=== PATIENT | male | born 1950 | race Caucasian/White ===

== ENCOUNTER 2023-07-29 19:05 | Emergency (ER) | payer OTHER ==
[~2023-07-29] VITALS: Ht 182.9 cm; Wt 113.4 kg
[2023-07-29 19:10] VITALS: BP 104/53; PULSE 105; RESP 16; TEMP 97.3; O2SAT 97
[2023-07-29 20:14] LABS: APPEARANCE,URINE CLEAR (CLEAR); BILIRUBIN,URINE 2+ (NEGATIVE); BLOOD, URINE NEGATIVE (NEGATIVE); COLOR,URINE YELLOW (YELLOW); LEUKOCYTE ESTERASE ,URINE NEGATIVE (NEGATIVE); NITRITE, URINE NEGATIVE (NEGATIVE); PH,URINE 5.5 (5.0-9.0); PROTEIN,URINE TRACE (NEGATIVE); UGLUCOSE 2+ (NEGATIVE); UROBILINOGEN,URINE 0.2 EU/dL (0.2 - 1)
[2023-07-29 20:24] LABS: ICTOTEST NEGATIVE (NEGATIVE)
[2023-07-29 20:25] LABS: BACTERIA,URINE FEW /HPF (None Seen); MUCUS,URINE 1+ /LPF (None Seen); RBC,URINE 0-5 /HPF (0-5); SQUAMOUS EPITHELIAL CELL,UR 50-80 /LPF (0-3 (FEW)); TRICHOMONAS,URINE None Seen /HPF (None Seen); WBC,URINE 0-5 /HPF (0-5); YEAST,URINE None Seen /HPF (None Seen)
[2023-07-29 20:27] LABS: BASOPHILS # (AUTO) 0.1 K/uL (0.00-0.22); BASOPHILS % (AUTO) 1.7 % (0.0-2.0); EOSINOPHILS % (AUTO) 0.7 % (0.0-4.0); HEMATOCRIT 23.3 % (36-52); HEMOGLOBIN 8.1 g/dL (12.0-18.0); LYMPHOCYTES # (AUTO) 0.8 K/uL (2.0-11.5); MEAN CORPUSCULAR HEMOGLOBIN 31 pg (27-31); MEAN CORPUSCULAR HGB CONC 35 g/dL (33-37); MEAN CORPUSCULAR VOLUME 89.1 fL (80-94); MONOCYTES % (AUTO) 16.9 % (1.7-9.3); NEUTROPHILS % (AUTO) 66.7 % (42.2-75.2); PLATELET COUNT (AUTO) 247 K/uL (140-450); RED BLOOD CELL COUNT(AUTO) 2.61 MIL/uL (4.20-6.10); RED CELL DISTRIBUTION WIDTH 19.8 % (11.6-13.7); WHITE BLOOD COUNT (AUTO) 5.9 K/uL (4.8-10.8)
[2023-07-29 20:37] LABS: ANION GAP 14.6 (8-16); CALCIUM 8.3 mg/dL (8.5-10.1); CHLORIDE 106 mmol/L (98-107); CREATININE 1.8 mg/dL (0.6-1.3); GLUCOSE 101 mg/dL (74-106); POTASSIUM 5.6 mmol/L (3.5-5.1); SODIUM SERUM 139 mmol/L (136-145); UREA NITROGEN, BLOOD 35 mg/dL (7-18)
[2023-07-29 20:41] LABS: ANISOCYTOSIS 2+; BURR CELLS 1+; HYPOCHROMASIA 1+; OVALOCYTES 1+; POIKILOCYTOSIS 1+; STOMATOCYTES 1+
[2023-07-29 21:07] VITALS: RESP 14
[2023-07-29] MEDS ORDERED: SODIUM ZIRCONIUM CYCLOSILICATE 10 GM POWD.PACK PO ONE (21:45)
[2023-07-29 22:25] VITALS: BP 101/67; PULSE 98; O2SAT 100
== END 2023-07-29 22:42 ==
LOC: MED 19:05
DX: R33.9 Retention of urine, unspecified (principal); J44.9 Chronic obstructive pulmonary disease, unspecified; E11.9 Type 2 diabetes mellitus without complications; I10 Essential (primary) hypertension; Z86.73 Personal history of transient ischemic attack (TIA), and cerebral infarction without residual deficits
CPT/HCPCS: 36415; 51702; 80048; 81001; 85025; 93005; 99284

== ENCOUNTER 2023-10-08 19:19 | Inpatient (IN) | payer OTHER ==
[~2023-10-08] VITALS: Ht 180.3 cm; Wt 96.7 kg
[2023-10-08 19:32] VITALS: BP 119/70; PULSE 103; RESP 20; TEMP 97.5; O2SAT 98
[2023-10-08 22:23] LABS: BLOOD GAS PCO2 26.2 mmHg (35-45); BLOOD GAS PH 7.477 (7.35-7.45)
[2023-10-08 22:24] LABS: BLOOD GAS BASE EXCESS -3.5 mmol/L (-2.0-2.0); BLOOD GAS HCO3 18.9 mmol/L (22-26); BLOOD GAS O2 SAT% 92.9 % (92.0-98.5); BLOOD GAS PO2 66.5 mmHg (75-100)
[2023-10-08] MEDS: NACL 0.9% 1,000 ML IV ONE (22:50)
[2023-10-08 22:58] LABS: EOSINOPHILS % (AUTO) 1.2 % (0.0-4.0); HEMATOCRIT 33.9 % (36-52); HEMOGLOBIN 11.5 g/dL (12.0-18.0); LYMPHOCYTES # (AUTO) 0.5 K/uL (2.0-11.5); LYMPHOCYTES % (AUTO) 91.3 % (20.5-51.1); MEAN CORPUSCULAR HEMOGLOBIN 34 pg (27-31); MEAN CORPUSCULAR HGB CONC 34 g/dL (33-37); MEAN CORPUSCULAR VOLUME 100.7 fL (80-94); MONOCYTES % (AUTO) 2.2 % (1.7-9.3); NEUTROPHILS % (AUTO) 5.3 % (42.2-75.2); PLATELET COUNT (AUTO) 55 K/uL (140-450); RED BLOOD CELL COUNT(AUTO) 3.37 MIL/uL (4.20-6.10)
[2023-10-08 23:00] LABS: WHITE BLOOD COUNT (AUTO) 0.5 K/uL (4.8-10.8)
[2023-10-08 23:04] LABS: ANION GAP 17.9 (8-16); CALCIUM 9.5 mg/dL (8.5-10.1); CARBON DIOXIDE 21.7 mmol/L (21-32); CHLORIDE 104 mmol/L (98-107); CREATININE 1.4 mg/dL (0.6-1.3); GLUCOSE 299 mg/dL (74-106); POTASSIUM 4.6 mmol/L (3.5-5.1); SODIUM SERUM 139 mmol/L (136-145); UREA NITROGEN, BLOOD 25 mg/dL (7-18)
[2023-10-08 23:11] LABS: ALANINE AMINOTRANSFERASE 63 U/L (12-78); ALBUMIN 3.4 g/dL (3.4-5.0); ALKALINE PHOSPHATASE 93 U/L (50-136); ASPARTATE AMINOTRANSFERASE 33 U/L (15-37); BILIRUBIN,DIRECT 0.2 mg/dL (0.0-0.3); TOTAL BILIRUBIN 0.6 mg/dL (0.0-1.0)
[2023-10-08 23:15] LABS: LACTIC ACID 3.2 mmol/L (0.4-2.0)
[2023-10-08 23:32] LABS: APPEARANCE,URINE CLEAR (CLEAR); BILIRUBIN,URINE NEGATIVE (NEGATIVE); BLOOD, URINE 2+ (NEGATIVE); COLOR,URINE YELLOW (YELLOW); LEUKOCYTE ESTERASE ,URINE NEGATIVE (NEGATIVE); NITRITE, URINE NEGATIVE (NEGATIVE); PROTEIN,URINE 1+ (NEGATIVE); UGLUCOSE 2+ (NEGATIVE); UROBILINOGEN,URINE 0.2 EU/dL (0.2 - 1)
[2023-10-08 23:38] LABS: BACTERIA,URINE >30 (MANY) /HPF (None Seen); MUCUS,URINE 1+ /LPF (None Seen); SQUAMOUS EPITHELIAL CELL,UR 0-3 (FEW) /LPF (0-3 (FEW))
[2023-10-09] VITALS (11 sets, daily range): BP systolic 115–142; BP diastolic 58–67; PULSE 83–108; RESP 16–21; TEMP 97.5–98.2; O2SAT 97–100
[2023-10-09 00:14] LABS: INR 1.02 (0.8-1.2); PARTIAL THROMBOPLASTIN TIME 32.5 secs (22-35.6); PROTHROMBIN TIME 10.7 secs (10.8-13.4)
[2023-10-09] MEDS ORDERED: ONDANSETRON 4 MG/2 ML VIAL IVP PRN (00:50)
[2023-10-09] MEDS: NACL 0.9% 1,000 ML IV SCH (00:50)
[2023-10-09] MEDS ORDERED: ALBUTEROL 0.083% 2.5 MG/3 ML NEBU INH PRN (00:50)
[2023-10-09] MEDS ORDERED: HYDROcodone/APAP 5/325 MG 1 TAB TAB PO PRN (00:50)
[2023-10-09] MEDS ORDERED: ACETAMINOPHEN 325 MG TAB PO PRN (00:50)
[2023-10-09] MEDS ORDERED: LORazepam 2 MG/ML VIAL IVP PRN (00:50)
[2023-10-09] MEDS ORDERED: PIPERACILLIN/TAZOBACTAM 3.375 GM VIAL IV ONE (00:51)
[2023-10-09] MEDS ORDERED: DEXTROSE 50% 50 ML SYR IVP PRN (00:55)
[2023-10-09] MEDS: PIPERACILLIN/TAZOBACTAM 3.375 GM in DEXTROSE 5% 50 ML IV ONE (01:00)
[2023-10-09 02:09] LABS: FLU A ANTIGEN negative (NEGATIVE); FLU B ANTIGEN NEGATIVE (NEGATIVE)
[2023-10-09] MEDS ORDERED: PRO5 PO (02:22)
[2023-10-09] MEDS ORDERED: POLY17PD65 PO (02:22)
[2023-10-09] MEDS ORDERED: PUL.5N NEB (02:22)
[2023-10-09] MEDS ORDERED: ROSU20TA1 PO (02:22)
[2023-10-09] MEDS ORDERED: ASPI-1749 PO (02:22)
[2023-10-09] MEDS ORDERED: ALBU3SOL83 IH (02:22)
[2023-10-09] MEDS ORDERED: FAMO-90 PO (02:22)
[2023-10-09] MEDS ORDERED: ISAV186C2 PO (02:22)
[2023-10-09] MEDS ORDERED: XALOS OP (02:22)
[2023-10-09] MEDS ORDERED: EMPA10TA PO (02:22)
[2023-10-09] MEDS ORDERED: ACYC400T14 PO (02:22)
[2023-10-09] MEDS ORDERED: APIX2.5 PO (02:22)
[2023-10-09] MEDS ORDERED: TAMS0.4C96 PO (02:25)
[2023-10-09] MEDS ORDERED: ZINC100T8 PO (02:25)
[2023-10-09] MEDS ORDERED: GILT40TA PO (02:25)
[2023-10-09] MEDS ORDERED: VIT1TABL36 PO (02:25)
[2023-10-09] MEDS ORDERED: NACL 0.9% 500 ML IV SCH (08:20)
[2023-10-09] MEDS: BLOOD GLUCOSE MONITORING 1 DEV DEV FS SCH (08:23)
[2023-10-09] MEDS: PIPERACILLIN/TAZOBACTAM 3.375 GM in DEXTROSE 5% 50 ML IV SCH ×2 (08:54→16:14)
[2023-10-09] MEDS: INSULIN LISPRO SLIDING SCALE 100 UNITS/ML VIAL SUBQ PRN (09:16)
[2023-10-09] MEDS ORDERED: VANCOMYCIN PER PHARMACY MC PRN ×2 (11:45→18:40)
[2023-10-09] MEDS: FILGRASTIM-TBO 300 MCG/0.5 ML SYRINGE SUBQ SCH (12:05)
[2023-10-09] MEDS: VANCOMYCIN 1.25GM PREMIX 250 ML IV SCH (13:20)
[2023-10-09] MEDS: ALBUTEROL SULFATE/IPRATROPIU 3 ML SOL IH SCH (15:52)
[2023-10-09] MEDS: CEFEPIME 1,000 MG in DEXTROSE 5% 50 ML IV SCH (20:20)
[2023-10-10] VITALS (11 sets, daily range): BP systolic 118–121; BP diastolic 60–64; PULSE 83–96; RESP 16–20; TEMP 96.9–97.8; O2SAT 96–100
[2023-10-10 06:47] LABS: EOSINOPHILS % (AUTO) 0.3 % (0.0-4.0); HEMATOCRIT 20.5 % (36-52); LYMPHOCYTES # (AUTO) 0.5 K/uL (2.0-11.5); LYMPHOCYTES % (AUTO) 95.7 % (20.5-51.1); MEAN CORPUSCULAR HEMOGLOBIN 34 pg (27-31); MEAN CORPUSCULAR HGB CONC 34 g/dL (33-37); MEAN CORPUSCULAR VOLUME 100.7 fL (80-94); MONOCYTES % (AUTO) 1.6 % (1.7-9.3); NEUTROPHILS % (AUTO) 2.4 % (42.2-75.2); PLATELET COUNT (AUTO) 37 K/uL (140-450); RED BLOOD CELL COUNT(AUTO) 2.03 MIL/uL (4.20-6.10); RED CELL DISTRIBUTION WIDTH 24.8 % (11.6-13.7)
[2023-10-10 06:55] LABS: WHITE BLOOD COUNT (AUTO) 0.5 K/uL (4.8-10.8)
[2023-10-10 07:25] LABS: CALCIUM 8.8 mg/dL (8.5-10.1); CHLORIDE 106 mmol/L (98-107); CREATININE 1.1 mg/dL (0.6-1.3); GLUCOSE 132 mg/dL (74-106); SODIUM SERUM 139 mmol/L (136-145); UREA NITROGEN, BLOOD 30 mg/dL (7-18)
[2023-10-10 08:25] LABS: MAGNESIUM 1.9 mg/dL (1.8-2.4); PHOSPHORUS 3.5 mg/dL (2.5-4.9)
[2023-10-10] MEDS: VANCOMYCIN 1.25GM PREMIX 250 ML IV SCH (10:10)
[2023-10-10] MEDS ORDERED: GENTAMICIN PER PHARMACY MC PRN (21:15)
[2023-10-10] MEDS ORDERED: GENTAMICIN 400 MG in DEXTROSE 5% 100 ML IV SCH (22:00)
[2023-10-11] VITALS (11 sets, daily range): BP systolic 102–127; BP diastolic 57–69; PULSE 87–95; RESP 16–18; TEMP 96.8–97.2; O2SAT 95–100
[2023-10-11] MEDS ORDERED: GENTAMICIN 400 MG in DEXTROSE 5% 100 ML IV SCH (01:35)
[2023-10-11] MEDS ORDERED: GENTAMICIN 80 MG/2 ML VIAL ONE (01:56)
[2023-10-11] MEDS: GENTAMICIN 400 MG in DEXTROSE 5% 100 ML IV ONE (02:23)
[2023-10-11 10:09] LABS: HEMATOCRIT 21.8 % (36-52); HEMOGLOBIN 7.5 g/dL (12.0-18.0); MEAN CORPUSCULAR HEMOGLOBIN 34 pg (27-31); MEAN CORPUSCULAR HGB CONC 34 g/dL (33-37); MEAN CORPUSCULAR VOLUME 99.4 fL (80-94); PLATELET COUNT (AUTO) 44 K/uL (140-450); RED CELL DISTRIBUTION WIDTH 24.6 % (11.6-13.7)
[2023-10-11 10:19] LABS: WHITE BLOOD COUNT (AUTO) 0.5 K/uL (4.8-10.8)
[2023-10-11 10:27] LABS: LACTIC ACID 2.1 mmol/L (0.4-2.0)
[2023-10-11 10:48] LABS: ANISOCYTOSIS 3+; BASOPHILS % (MANUAL) 0 % (0-2); EOSINOPHILS % (MANUAL) 0 % (0-4); HYPOCHROMASIA 2+; LYMPHOCYTES % (MANUAL) 96 % (20-46); MONOCYTES % (MANUAL) 2 % (5-12); PLATELET ESTIMATE DECREASED; POLYCHROMASIA 1+
[2023-10-11 10:49] LABS: OVALOCYTES 2+; TEAR DROP CELLS 1+
[2023-10-11 13:15] LABS: ALANINE AMINOTRANSFERASE 64 U/L (12-78); ALBUMIN 2.5 g/dL (3.4-5.0); ALKALINE PHOSPHATASE 73 U/L (50-136); ANION GAP 14.2 (8-16); ASPARTATE AMINOTRANSFERASE 31 U/L (15-37); CALCIUM 8.6 mg/dL (8.5-10.1); CARBON DIOXIDE 23.5 mmol/L (21-32); CHLORIDE 104 mmol/L (98-107); CREATININE 0.8 mg/dL (0.6-1.3); GLUCOSE 175 mg/dL (74-106); POTASSIUM 3.7 mmol/L (3.5-5.1); SODIUM SERUM 138 mmol/L (136-145); TOTAL BILIRUBIN 0.4 mg/dL (0.0-1.0); UREA NITROGEN, BLOOD 22 mg/dL (7-18)
[2023-10-11] MEDS: GENTAMICIN 150 MG in DEXTROSE 5% 100 ML IV SCH (22:10)
[2023-10-12] VITALS (8 sets, daily range): BP systolic 112–118; BP diastolic 56–65; PULSE 77–95; RESP 16–18; TEMP 96.8–98.3; O2SAT 94–99
[2023-10-12] MEDS: AMPICILLIN 1,000 MG VIAL ONE (00:38)
[2023-10-12] MEDS: AMPICILLIN 2,000 MG in NACL 0.9% 100 ML IV SCH (00:48)
[2023-10-12] MEDS: AMPICILLIN 2,000 MG VIAL ONE (06:08)
[2023-10-12 07:18] LABS: EOSINOPHILS % (AUTO) 0.3 % (0.0-4.0); HEMATOCRIT 20.8 % (36-52); HEMOGLOBIN 7.1 g/dL (12.0-18.0); LYMPHOCYTES # (AUTO) 0.4 K/uL (2.0-11.5); LYMPHOCYTES % (AUTO) 94.2 % (20.5-51.1); MEAN CORPUSCULAR HEMOGLOBIN 34 pg (27-31); MEAN CORPUSCULAR HGB CONC 34 g/dL (33-37); MEAN CORPUSCULAR VOLUME 99.7 fL (80-94); MONOCYTES % (AUTO) 2.2 % (1.7-9.3); NEUTROPHILS % (AUTO) 3.3 % (42.2-75.2); PLATELET COUNT (AUTO) 60 K/uL (140-450); RED BLOOD CELL COUNT(AUTO) 2.08 MIL/uL (4.20-6.10); RED CELL DISTRIBUTION WIDTH 24.1 % (11.6-13.7)
[2023-10-12 07:31] LABS: ALANINE AMINOTRANSFERASE 79 U/L (12-78); ALBUMIN 2.6 g/dL (3.4-5.0); ALKALINE PHOSPHATASE 75 U/L (50-136); ASPARTATE AMINOTRANSFERASE 33 U/L (15-37); CALCIUM 8.8 mg/dL (8.5-10.1); CARBON DIOXIDE 22.2 mmol/L (21-32); CHLORIDE 105 mmol/L (98-107); CREATININE 0.8 mg/dL (0.6-1.3); GLUCOSE 135 mg/dL (74-106); MAGNESIUM 1.7 mg/dL (1.8-2.4); POTASSIUM 4.2 mmol/L (3.5-5.1); SODIUM SERUM 138 mmol/L (136-145); TOTAL BILIRUBIN 0.5 mg/dL (0.0-1.0); TOTAL PROTEIN, SERUM 6.1 g/dL (6.4-8.2); UREA NITROGEN, BLOOD 23 mg/dL (7-18)
[2023-10-12 07:58] LABS: WHITE BLOOD COUNT (AUTO) 0.4 K/uL (4.8-10.8)
[2023-10-12] MEDS: MAG SULF 2000 MG/WATER PREMIX 50 ML IV SCH (09:46)
[2023-10-12] MEDS: ACYCLOVIR 200 MG CAP PO SCH (20:17)
[2023-10-13] VITALS (11 sets, daily range): BP systolic 118–140; BP diastolic 62–87; PULSE 84–104; RESP 18–20; TEMP 97.5–98.7; O2SAT 94–99
[2023-10-13 06:51] LABS: MEAN CORPUSCULAR HEMOGLOBIN 34 pg (27-31); MEAN CORPUSCULAR HGB CONC 34 g/dL (33-37); MEAN CORPUSCULAR VOLUME 100.2 fL (80-94); PLATELET COUNT (AUTO) 68 K/uL (140-450); RED BLOOD CELL COUNT(AUTO) 1.96 MIL/uL (4.20-6.10); RED CELL DISTRIBUTION WIDTH 24.1 % (11.6-13.7)
[2023-10-13 07:13] LABS: ALANINE AMINOTRANSFERASE 63 U/L (12-78); ALBUMIN 2.4 g/dL (3.4-5.0); ALKALINE PHOSPHATASE 72 U/L (50-136); ANION GAP 15.7 (8-16); ASPARTATE AMINOTRANSFERASE 21 U/L (15-37); CALCIUM 8.3 mg/dL (8.5-10.1); CARBON DIOXIDE 22.3 mmol/L (21-32); CHLORIDE 105 mmol/L (98-107); CREATININE 0.8 mg/dL (0.6-1.3); GLUCOSE 188 mg/dL (74-106); MAGNESIUM 1.7 mg/dL (1.8-2.4); SODIUM SERUM 139 mmol/L (136-145); TOTAL BILIRUBIN 0.4 mg/dL (0.0-1.0); TOTAL PROTEIN, SERUM 5.8 g/dL (6.4-8.2); UREA NITROGEN, BLOOD 20 mg/dL (7-18)
[2023-10-13 07:40] LABS: HEMATOCRIT 19.6 % (36-52); HEMOGLOBIN 6.7 g/dL (12.0-18.0); WHITE BLOOD COUNT (AUTO) 0.4 K/uL (4.8-10.8)
[2023-10-13 08:03] LABS: LYMPHOCYTES % (MANUAL) 94 % (20-46); PLATELET ESTIMATE DECREASED
[2023-10-13 08:04] LABS: POLYCHROMASIA 1+
[2023-10-13] MEDS: LACTOBACILLUS RHAMNOSUS GG 1 EACH CAP PO SCH (10:49)
[2023-10-13] MEDS: FLUCONAZOLE 100 MG TAB PO SCH (10:50)
[2023-10-13] MEDS: levoFLOXacin 500 MG TAB PO SCH (10:50)
[2023-10-13 19:15] LABS: EOSINOPHILS % (AUTO) 1.9 % (0.0-4.0); HEMATOCRIT 24.4 % (36-52); HEMOGLOBIN 8.3 g/dL (12.0-18.0); LYMPHOCYTES # (AUTO) 0.3 K/uL (2.0-11.5); LYMPHOCYTES % (AUTO) 86.8 % (20.5-51.1); MEAN CORPUSCULAR HEMOGLOBIN 33 pg (27-31); MEAN CORPUSCULAR HGB CONC 34 g/dL (33-37); MEAN CORPUSCULAR VOLUME 97.2 fL (80-94); MONOCYTES % (AUTO) 7.7 % (1.7-9.3); NEUTROPHILS % (AUTO) 3.6 % (42.2-75.2); PLATELET COUNT (AUTO) 80 K/uL (140-450); RED BLOOD CELL COUNT(AUTO) 2.51 MIL/uL (4.20-6.10); RED CELL DISTRIBUTION WIDTH 25.5 % (11.6-13.7)
[2023-10-13 20:41] LABS: WHITE BLOOD COUNT (AUTO) 0.3 K/uL (4.8-10.8)
[2023-10-14] VITALS (9 sets, daily range): BP systolic 122–140; BP diastolic 62–85; PULSE 81–102; RESP 18–20; TEMP 97.3–98.5; O2SAT 95–98
[2023-10-14 07:25] LABS: EOSINOPHILS % (AUTO) 0.1 % (0.0-4.0); HEMATOCRIT 22.2 % (36-52); HEMOGLOBIN 7.6 g/dL (12.0-18.0); LYMPHOCYTES # (AUTO) 0.4 K/uL (2.0-11.5); LYMPHOCYTES % (AUTO) 89.7 % (20.5-51.1); MEAN CORPUSCULAR HEMOGLOBIN 33 pg (27-31); MEAN CORPUSCULAR HGB CONC 34 g/dL (33-37); MEAN CORPUSCULAR VOLUME 95.8 fL (80-94); MONOCYTES % (AUTO) 5.8 % (1.7-9.3); NEUTROPHILS % (AUTO) 4.4 % (42.2-75.2); PLATELET COUNT (AUTO) 93 K/uL (140-450); RED BLOOD CELL COUNT(AUTO) 2.31 MIL/uL (4.20-6.10); RED CELL DISTRIBUTION WIDTH 25.5 % (11.6-13.7)
[2023-10-14 07:44] LABS: ALANINE AMINOTRANSFERASE 63 U/L (12-78); ALBUMIN 2.3 g/dL (3.4-5.0); ALKALINE PHOSPHATASE 75 U/L (50-136); ASPARTATE AMINOTRANSFERASE 20 U/L (15-37); CALCIUM 8.5 mg/dL (8.5-10.1); CARBON DIOXIDE 22.5 mmol/L (21-32); CHLORIDE 103 mmol/L (98-107); CREATININE 0.7 mg/dL (0.6-1.3); GLUCOSE 161 mg/dL (74-106); MAGNESIUM 1.5 mg/dL (1.8-2.4); POTASSIUM 4.5 mmol/L (3.5-5.1); SODIUM SERUM 135 mmol/L (136-145); TOTAL BILIRUBIN 0.5 mg/dL (0.0-1.0); TOTAL PROTEIN, SERUM 5.8 g/dL (6.4-8.2); UREA NITROGEN, BLOOD 17 mg/dL (7-18)
[2023-10-14 07:50] LABS: WHITE BLOOD COUNT (AUTO) 0.4 K/uL (4.8-10.8)
[2023-10-14] MEDS ORDERED: POTASSIUM CHLORIDE 10 MEQ TABER PO PRN (12:45)
[2023-10-14] MEDS: GENTAMICIN 80 MG in DEXTROSE 5% 100 ML IV SCH (13:09)
[2023-10-14] MEDS: MAG SULF 2000 MG/WATER PREMIX 50 ML IV PRN (14:39)
[2023-10-15] VITALS (10 sets, daily range): BP systolic 127–137; BP diastolic 58–65; PULSE 82–108; RESP 18–22; TEMP 97.7–98.4; O2SAT 94–98
[2023-10-15 07:26] LABS: EOSINOPHILS % (AUTO) 0.6 % (0.0-4.0)
[2023-10-15 07:32] LABS: HEMATOCRIT 22.3 % (36-52); HEMOGLOBIN 7.5 g/dL (12.0-18.0); LYMPHOCYTES # (AUTO) 0.2 K/uL (2.0-11.5); LYMPHOCYTES % (AUTO) 88.9 % (20.5-51.1); MEAN CORPUSCULAR HEMOGLOBIN 33 pg (27-31); MEAN CORPUSCULAR HGB CONC 34 g/dL (33-37); MEAN CORPUSCULAR VOLUME 96.6 fL (80-94); MONOCYTES % (AUTO) 4.1 % (1.7-9.3); NEUTROPHILS % (AUTO) 6.4 % (42.2-75.2); PLATELET COUNT (AUTO) 119 K/uL (140-450)
[2023-10-15 08:01] LABS: WHITE BLOOD COUNT (AUTO) 0.3 K/uL (4.8-10.8)
[2023-10-15 08:17] LABS: ALANINE AMINOTRANSFERASE 60 U/L (12-78); ALBUMIN 2.3 g/dL (3.4-5.0); ALKALINE PHOSPHATASE 69 U/L (50-136); ANION GAP 15.6 (8-16); ASPARTATE AMINOTRANSFERASE 25 U/L (15-37); CALCIUM 8.5 mg/dL (8.5-10.1); CARBON DIOXIDE 23.6 mmol/L (21-32); CHLORIDE 100 mmol/L (98-107); CREATININE 0.9 mg/dL (0.6-1.3); GLUCOSE 207 mg/dL (74-106); MAGNESIUM 1.7 mg/dL (1.8-2.4); POTASSIUM 4.2 mmol/L (3.5-5.1); SODIUM SERUM 135 mmol/L (136-145); TOTAL BILIRUBIN 0.4 mg/dL (0.0-1.0); TOTAL PROTEIN, SERUM 5.7 g/dL (6.4-8.2); UREA NITROGEN, BLOOD 18 mg/dL (7-18)
[2023-10-16] VITALS (7 sets, daily range): BP systolic 94–121; BP diastolic 55–64; PULSE 86–102; RESP 18–20; TEMP 98.3–98.9; O2SAT 94–97
[2023-10-16 07:42] LABS: EOSINOPHILS % (AUTO) 0.8 % (0.0-4.0); HEMATOCRIT 24.4 % (36-52); HEMOGLOBIN 8.3 g/dL (12.0-18.0); LYMPHOCYTES # (AUTO) 0.3 K/uL (2.0-11.5); LYMPHOCYTES % (AUTO) 91.8 % (20.5-51.1); MEAN CORPUSCULAR HEMOGLOBIN 33 pg (27-31); MEAN CORPUSCULAR HGB CONC 34 g/dL (33-37); MONOCYTES % (AUTO) 2.3 % (1.7-9.3); NEUTROPHILS % (AUTO) 5.1 % (42.2-75.2); PLATELET COUNT (AUTO) 158 K/uL (140-450); RED BLOOD CELL COUNT(AUTO) 2.52 MIL/uL (4.20-6.10); RED CELL DISTRIBUTION WIDTH 25.1 % (11.6-13.7)
[2023-10-16 07:50] LABS: WHITE BLOOD COUNT (AUTO) 0.3 K/uL (4.8-10.8)
[2023-10-16 08:16] LABS: ALANINE AMINOTRANSFERASE 85 U/L (12-78); ALBUMIN 2.4 g/dL (3.4-5.0); ALKALINE PHOSPHATASE 71 U/L (50-136); ANION GAP 15.3 (8-16); ASPARTATE AMINOTRANSFERASE 59 U/L (15-37); CALCIUM 8.7 mg/dL (8.5-10.1); CARBON DIOXIDE 24.9 mmol/L (21-32); CHLORIDE 98 mmol/L (98-107); GLUCOSE 171 mg/dL (74-106); MAGNESIUM 2.1 mg/dL (1.8-2.4); POTASSIUM 4.2 mmol/L (3.5-5.1); SODIUM SERUM 134 mmol/L (136-145); TOTAL BILIRUBIN 0.6 mg/dL (0.0-1.0); TOTAL PROTEIN, SERUM 6.1 g/dL (6.4-8.2); UREA NITROGEN, BLOOD 18 mg/dL (7-18)
[2023-10-16] MEDS: GENTAMICIN 100 MG in DEXTROSE 5% 100 ML IV SCH (10:44)
[2023-10-16] MEDS ORDERED: ALBUTEROL SULFATE/IPRATROPIU 3 ML SOL IH PRN (12:00)
[2023-10-16] MEDS: ACYCLOVIR 200 MG CAP PO SCH (21:44)
[2023-10-17 07:29] LABS: EOSINOPHILS % (AUTO) 0.7 % (0.0-4.0); HEMATOCRIT 21.8 % (36-52); HEMOGLOBIN 7.6 g/dL (12.0-18.0); LYMPHOCYTES # (AUTO) 0.3 K/uL (2.0-11.5); LYMPHOCYTES % (AUTO) 89.1 % (20.5-51.1); MEAN CORPUSCULAR HEMOGLOBIN 33 pg (27-31); MEAN CORPUSCULAR HGB CONC 35 g/dL (33-37); MEAN CORPUSCULAR VOLUME 96.2 fL (80-94); MONOCYTES % (AUTO) 2.9 % (1.7-9.3); NEUTROPHILS % (AUTO) 7.3 % (42.2-75.2); PLATELET COUNT (AUTO) 176 K/uL (140-450); RED BLOOD CELL COUNT(AUTO) 2.27 MIL/uL (4.20-6.10); RED CELL DISTRIBUTION WIDTH 24.3 % (11.6-13.7)
[2023-10-17 07:49] LABS: ALANINE AMINOTRANSFERASE 94 U/L (12-78); ALBUMIN 2.2 g/dL (3.4-5.0); ALKALINE PHOSPHATASE 61 U/L (50-136); ANION GAP 13.7 (8-16); ASPARTATE AMINOTRANSFERASE 70 U/L (15-37); CALCIUM 8.3 mg/dL (8.5-10.1); CARBON DIOXIDE 25.2 mmol/L (21-32); CHLORIDE 98 mmol/L (98-107); CREATININE 1.1 mg/dL (0.6-1.3); GLUCOSE 164 mg/dL (74-106); MAGNESIUM 1.9 mg/dL (1.8-2.4); POTASSIUM 3.9 mmol/L (3.5-5.1); SODIUM SERUM 133 mmol/L (136-145); TOTAL BILIRUBIN 0.5 mg/dL (0.0-1.0); TOTAL PROTEIN, SERUM 5.5 g/dL (6.4-8.2); UREA NITROGEN, BLOOD 22 mg/dL (7-18)
[2023-10-17 08:00] VITALS: BP 105/60; PULSE 99; RESP 19; RESP 20; TEMP 98; O2SAT 94
[2023-10-17] MEDS: FLUCONAZOLE 100 MG TAB PO SCH (08:14)
[2023-10-17 08:49] LABS: WHITE BLOOD COUNT (AUTO) 0.3 K/uL (4.8-10.8)
[2023-10-17] MEDS: FILGRASTIM-TBO 300 MCG/0.5 ML SYRINGE SUBQ SCH (10:58)
[2023-10-17 11:05] VITALS: PULSE 97; RESP 16; O2SAT 98
[2023-10-17 16:00] VITALS: BP 119/65; PULSE 102; RESP 18; TEMP 98.3; O2SAT 95
[2023-10-17] MEDS: POTASSIUM CHL 20 MEQ/NACL 0.9% 1,000 ML IV SCH (17:00)
[2023-10-17 20:00] VITALS: BP 126/54; PULSE 103; RESP 18; RESP 8; TEMP 98; TEMP 98.2; O2SAT 98
[2023-10-18] VITALS (7 sets, daily range): BP systolic 115–133; BP diastolic 51–67; PULSE 73–102; RESP 18; TEMP 97.5–98.1; O2SAT 93–100
[2023-10-18 06:55] LABS: HEMATOCRIT 22.4 % (36-52); HEMOGLOBIN 7.6 g/dL (12.0-18.0); MEAN CORPUSCULAR HEMOGLOBIN 33 pg (27-31); MEAN CORPUSCULAR HGB CONC 34 g/dL (33-37); MEAN CORPUSCULAR VOLUME 96.2 fL (80-94); PLATELET COUNT (AUTO) 200 K/uL (140-450); RED BLOOD CELL COUNT(AUTO) 2.33 MIL/uL (4.20-6.10); RED CELL DISTRIBUTION WIDTH 24.5 % (11.6-13.7)
[2023-10-18 07:51] LABS: LYMPHOCYTES % (MANUAL) 82 % (20-46); WHITE BLOOD COUNT (AUTO) 0.3 K/uL (4.8-10.8)
[2023-10-18 07:52] LABS: MONOCYTES % (MANUAL) 2 % (5-12); OVALOCYTES 1+; PLATELET ESTIMATE ADEQUATE; TEAR DROP CELLS 1+
[2023-10-18 08:00] LABS: ALANINE AMINOTRANSFERASE 118 U/L (12-78); ALBUMIN 2.2 g/dL (3.4-5.0); ALKALINE PHOSPHATASE 58 U/L (50-136); ANION GAP 13.1 (8-16); ASPARTATE AMINOTRANSFERASE 88 U/L (15-37); CARBON DIOXIDE 25.9 mmol/L (21-32); CHLORIDE 101 mmol/L (98-107); GLUCOSE 131 mg/dL (74-106); MAGNESIUM 1.8 mg/dL (1.8-2.4); SODIUM SERUM 136 mmol/L (136-145); TOTAL BILIRUBIN 0.6 mg/dL (0.0-1.0); TOTAL PROTEIN, SERUM 5.4 g/dL (6.4-8.2); UREA NITROGEN, BLOOD 23 mg/dL (7-18)
[2023-10-18] MEDS ORDERED: THERAHONEY GEL 42.5 GM TP PRN (15:00)
[2023-10-18] MEDS ORDERED: FOAM DRESSING TP PRN (15:00)
[2023-10-19 03:32] VITALS: BP 147/60; PULSE 68; RESP 18; TEMP 97.6; O2SAT 96
[2023-10-19 08:00] VITALS: PULSE 94; RESP 18; TEMP 98; O2SAT 96
[2023-10-19] MEDS ORDERED: Foam Dressing TP ×2 (10:53)
[2023-10-19] MEDS ORDERED: ACYC200C26 PO (10:53)
[2023-10-19] MEDS ORDERED: Therahoney Gel TP ×2 (10:53)
[2023-10-19] MEDS ORDERED: ALBU3SOL83 IH (10:53)
[2023-10-19] MEDS ORDERED: TBO-300S SUBQ (10:53)
[2023-10-19] MEDS ORDERED: [UNRECOGNIZED DRUG - CODE] IV (10:53)
[2023-10-19] MEDS ORDERED: FLUC100T1 PO (10:53)
[2023-10-19] MEDS ORDERED: [UNRECOGNIZED DRUG - CODE] IV (10:53)
[2023-10-19] MEDS ORDERED: LACT10CA PO (10:53)
[2023-10-19] MEDS ORDERED: ACET-1182 PO (10:53)
[2023-10-19] MEDS ORDERED: HUMSLIDE SUBQ (10:53)
[2023-10-19 11:12] LABS: HEMATOCRIT 20.3 % (36-52); MEAN CORPUSCULAR HEMOGLOBIN 33 pg (27-31); MEAN CORPUSCULAR HGB CONC 34 g/dL (33-37); MEAN CORPUSCULAR VOLUME 96.6 fL (80-94); PLATELET COUNT (AUTO) 206 K/uL (140-450); RED CELL DISTRIBUTION WIDTH 24.1 % (11.6-13.7)
[2023-10-19 11:25] LABS: WHITE BLOOD COUNT (AUTO) 0.3 K/uL (4.8-10.8)
[2023-10-19 11:35] LABS: ALANINE AMINOTRANSFERASE 140 U/L (12-78); ALKALINE PHOSPHATASE 59 U/L (50-136); ANION GAP 12.9 (8-16); ASPARTATE AMINOTRANSFERASE 88 U/L (15-37); CALCIUM 7.8 mg/dL (8.5-10.1); CHLORIDE 102 mmol/L (98-107); GLUCOSE 174 mg/dL (74-106); MAGNESIUM 1.7 mg/dL (1.8-2.4); POTASSIUM 3.9 mmol/L (3.5-5.1); SODIUM SERUM 137 mmol/L (136-145); TOTAL BILIRUBIN 0.6 mg/dL (0.0-1.0); UREA NITROGEN, BLOOD 20 mg/dL (7-18)
[2023-10-19 11:45] LABS: LYMPHOCYTES % (MANUAL) 70 % (20-46); OVALOCYTES 1+; PLATELET ESTIMATE ADEQUATE
[2023-10-19 11:46] LABS: TEAR DROP CELLS 1+
[2023-10-19] MEDS: THERAHONEY GEL 42.5 GM TP SCH (12:33)
[2023-10-19] MEDS ORDERED: GENTAMICIN PER PHARMACY MC PRN (13:40)
[2023-10-19] MEDS: AMPICILLIN 2,000 MG in NACL 0.9% 100 ML IV SCH (14:18)
[2023-10-19 14:47] VITALS: BP 103/52; TEMP 97.5
[2023-10-20] MEDS ORDERED: LACT100C5 PO (15:55)
[2023-10-20] MEDS ORDERED: EMPA10TA PO (15:55)
[2023-10-20] MEDS ORDERED: ALBU3SOL83 IH (15:55)
[2023-10-20] MEDS ORDERED: ASPI-1822 PO (15:55)
[2023-10-20] MEDS ORDERED: TAMS0.4C96 PO (15:55)
[2023-10-20] MEDS ORDERED: DOCU-300 PO (15:55)
[2023-10-20] MEDS ORDERED: FAMO-368 PO (15:55)
[2023-10-20] MEDS ORDERED: GILT40TA PO (15:55)
[2023-10-20] MEDS ORDERED: ROSU20TA73 PO (15:55)
[2023-10-20] MEDS ORDERED: VIT1TABL36 PO (15:55)
[2023-10-20] MEDS ORDERED: LATA2.5S14 OP (15:55)
[2023-10-20] MEDS ORDERED: PRO5 PO (15:55)
[2023-10-20] MEDS ORDERED: ZINC100T8 PO (15:55)
[2023-10-20] MEDS ORDERED: ISAV186C2 PO (15:55)
[2023-10-21] MEDS ORDERED: FOAM DRESSING TP SCH (09:00)
== END 2023-10-19 16:21 | disposition home or self-care (01) | DRG 871 ==
LOC: MED 19:19 → MTU 10-09 01:01
PROVIDERS: ADMIT Family Medicine; ATTEND Family Medicine
PROC: 30233N1 Transfusion of Nonautologous Red Blood Cells into Peripheral Vein, Percutaneous Approach (ICD-10-PCS; principal; 2023-10-13)
DX: A41.81 Sepsis due to Enterococcus (principal); D61.810 Antineoplastic chemotherapy induced pancytopenia; N17.0 Acute kidney failure with tubular necrosis; N39.0 Urinary tract infection, site not specified; C92.01 Acute myeloblastic leukemia, in remission; D84.9 Immunodeficiency, unspecified; B96.4 Proteus (mirabilis) (morganii) as the cause of diseases classified elsewhere; J44.9 Chronic obstructive pulmonary disease, unspecified; I10 Essential (primary) hypertension; F70 Mild intellectual disabilities; I25.10 Atherosclerotic heart disease of native coronary artery without angina pectoris; E11.9 Type 2 diabetes mellitus without complications; T45.1X5A Adverse effect of antineoplastic and immunosuppressive drugs, initial encounter; Z86.73 Personal history of transient ischemic attack (TIA), and cerebral infarction without residual deficits; Z92.21 Personal history of antineoplastic chemotherapy; G80.9 Cerebral palsy, unspecified; Z79.899 Other long term (current) drug therapy
CPT/HCPCS: 36415; 36600; 71045; 71275; 76700; 78582; 80048; 80053; 80076; 80170; 80202; 81001; 82803; 82948; 83036; 83605; 83735; 83880; 84100; 84484; 85025; 85379; 85610; 85730; 86886; 86900; 86901; 86920; 87040; 87081; 87086; 87186; 87420; 93005; 94640; 96361; 96365; 97110; 97112; 97163-GP; 97530; 99285; J0290; J0692; J1447; J1580; J1815; J2543; J3372; J3475; J7030; J7060; P9016; Q0092; Q9967

== ENCOUNTER 2023-10-20 14:21 | Emergency (ER) | payer OTHER ==
[~2023-10-20] VITALS: Ht 177.8 cm; Wt 108.9 kg
[2023-10-20 14:21] VITALS: BP 130/70; PULSE 86; RESP 18; TEMP 97.7; O2SAT 98
[~2023-10-20 14:21] MED LIST: ACET-1182 PO; ACYC200C26 PO; ALBU3SOL83 IH; APIX2.5 PO; ASPI-1749 PO; EMPA10TA PO; FAMO-90 PO; FLUC100T1 PO; Foam Dressing TP; GILT40TA PO; HUMSLIDE SUBQ; ISAV186C2 PO; LACT10CA PO; POLY17PD65 PO; PRO5 PO; PUL.5N NEB; ROSU20TA1 PO; TAMS0.4C96 PO; TBO-300S SUBQ; Therahoney Gel TP; VIT1TABL36 PO; XALOS OP; ZINC100T8 PO; [UNRECOGNIZED DRUG - CODE] IV; [UNRECOGNIZED DRUG - CODE] IV
[2023-10-20 15:39] LABS: BASOPHILS % (AUTO) 3.9 % (0.0-2.0); EOSINOPHILS % (AUTO) 1.6 % (0.0-4.0); LYMPHOCYTES # (AUTO) 0.2 K/uL (2.0-11.5); LYMPHOCYTES % (AUTO) 68.5 % (20.5-51.1); MEAN CORPUSCULAR HEMOGLOBIN 33 pg (27-31); MEAN CORPUSCULAR HGB CONC 35 g/dL (33-37); MEAN CORPUSCULAR VOLUME 96.4 fL (80-94); MONOCYTES % (AUTO) 1.3 % (1.7-9.3); NEUTROPHILS # (AUTO) 0.1 K/uL (1.8-7.7); NEUTROPHILS % (AUTO) 24.7 % (42.2-75.2); PLATELET COUNT (AUTO) 247 K/uL (140-450); RED BLOOD CELL COUNT(AUTO) 1.93 MIL/uL (4.20-6.10)
[2023-10-20 15:55] LABS: ANION GAP 12.3 (8-16); CALCIUM 8.1 mg/dL (8.5-10.1); CARBON DIOXIDE 26.4 mmol/L (21-32); CHLORIDE 101 mmol/L (98-107); CREATININE 0.9 mg/dL (0.6-1.3); GLUCOSE 170 mg/dL (74-106); POTASSIUM 3.7 mmol/L (3.5-5.1); SODIUM SERUM 136 mmol/L (136-145); UREA NITROGEN, BLOOD 19 mg/dL (7-18)
[2023-10-20] MEDS ORDERED: ALBU3SOL83 IH (15:55)
[2023-10-20] MEDS ORDERED: TAMS0.4C96 PO (15:55)
[2023-10-20] MEDS ORDERED: ROSU20TA73 PO (15:55)
[2023-10-20] MEDS ORDERED: FAMO-368 PO (15:55)
[2023-10-20] MEDS ORDERED: VIT1TABL36 PO (15:55)
[2023-10-20] MEDS ORDERED: LACT100C5 PO (15:55)
[2023-10-20] MEDS ORDERED: GILT40TA PO (15:55)
[2023-10-20] MEDS ORDERED: LATA2.5S14 OP (15:55)
[2023-10-20] MEDS ORDERED: ISAV186C2 PO (15:55)
[2023-10-20] MEDS ORDERED: DOCU-300 PO (15:55)
[2023-10-20] MEDS ORDERED: PRO5 PO (15:55)
[2023-10-20] MEDS ORDERED: ASPI-1822 PO (15:55)
[2023-10-20] MEDS ORDERED: ZINC100T8 PO (15:55)
[2023-10-20] MEDS ORDERED: EMPA10TA PO (15:55)
[2023-10-20 15:59] LABS: INR 1.08 (0.8-1.2); PARTIAL THROMBOPLASTIN TIME 29.6 secs (22-35.6); PROTHROMBIN TIME 11.3 secs (10.8-13.4)
[2023-10-20 16:11] LABS: HEMATOCRIT 18.6 % (36-52); HEMOGLOBIN 6.4 g/dL (12.0-18.0); WHITE BLOOD COUNT (AUTO) 0.3 K/uL (4.8-10.8)
[2023-10-20 20:00] VITALS: BP 130/80; PULSE 89; RESP 15; TEMP 97.7; O2SAT 97
== END 2023-10-20 20:00 | disposition home or self-care (01) ==
LOC: MED 14:21
DX: R53.1 Weakness (principal); D64.9 Anemia, unspecified; E11.9 Type 2 diabetes mellitus without complications; I11.9 Hypertensive heart disease without heart failure; Z86.73 Personal history of transient ischemic attack (TIA), and cerebral infarction without residual deficits; Z79.899 Other long term (current) drug therapy; Z79.4 Long term (current) use of insulin
CPT/HCPCS: 36415; 71045; 80048; 83880; 84484; 85025; 85610; 85730; 86886; 86900; 86901; 93005; 99285; Q0092

== ENCOUNTER 2023-10-27 15:15 | Emergency (ER) | payer OTHER ==
[~2023-10-27] VITALS: Ht 188 cm; Wt 95.3 kg
[~2023-10-27 15:15] MED LIST changes: -ASPI-1749 PO; +ASPI-1822 PO; +DOCU-300 PO; +FAMO-368 PO; -FAMO-90 PO; -Foam Dressing TP; +LACT100C5 PO; -LACT10CA PO; +LATA2.5S14 OP; -ROSU20TA1 PO; +ROSU20TA73 PO; -Therahoney Gel TP; -XALOS OP
[2023-10-27 15:18] VITALS: BP 112/59; PULSE 96; RESP 14; TEMP 96.9; O2SAT 92
[2023-10-27 16:02] LABS: BASOPHILS % (AUTO) 0.9 % (0.0-2.0); EOSINOPHILS % (AUTO) 1.1 % (0.0-4.0); LYMPHOCYTES # (AUTO) 0.7 K/uL (2.0-11.5); LYMPHOCYTES % (AUTO) 24.6 % (20.5-51.1); MEAN CORPUSCULAR HEMOGLOBIN 33 pg (27-31); MEAN CORPUSCULAR HGB CONC 33 g/dL (33-37); MEAN CORPUSCULAR VOLUME 99.2 fL (80-94); MONOCYTES # (AUTO) 0.2 K/uL (0.8-1.0); MONOCYTES % (AUTO) 7.2 % (1.7-9.3); NEUTROPHILS # (AUTO) 1.8 K/uL (1.8-7.7); NEUTROPHILS % (AUTO) 66.2 % (42.2-75.2); PLATELET COUNT (AUTO) 303 K/uL (140-450); RED BLOOD CELL COUNT(AUTO) 1.97 MIL/uL (4.20-6.10); WHITE BLOOD COUNT (AUTO) 2.7 K/uL (4.8-10.8)
[2023-10-27 16:06] LABS: HEMOGLOBIN 6.4 g/dL (12.0-18.0)
[2023-10-27 16:07] LABS: HEMATOCRIT 19.5 % (36-52)
[2023-10-27 16:13] LABS: ANION GAP 9.6 (8-16); CALCIUM 8.6 mg/dL (8.5-10.1); CARBON DIOXIDE 30.9 mmol/L (21-32); CHLORIDE 102 mmol/L (98-107); CREATININE 0.8 mg/dL (0.6-1.3); GLUCOSE 146 mg/dL (74-106); POTASSIUM 3.5 mmol/L (3.5-5.1); SODIUM SERUM 139 mmol/L (136-145); UREA NITROGEN, BLOOD 16 mg/dL (7-18)
[2023-10-27 17:43] VITALS: BP 125/56; PULSE 96; RESP 12; TEMP 98.1; O2SAT 96
== END 2023-10-27 17:43 ==
LOC: MED 15:15
DX: D64.9 Anemia, unspecified (principal); J44.9 Chronic obstructive pulmonary disease, unspecified; I11.9 Hypertensive heart disease without heart failure; E11.9 Type 2 diabetes mellitus without complications; Z86.73 Personal history of transient ischemic attack (TIA), and cerebral infarction without residual deficits; Z79.4 Long term (current) use of insulin; Z79.899 Other long term (current) drug therapy
CPT/HCPCS: 36415; 71045; 80048; 83880; 84484; 85025; 86886; 86900; 86901; 93005; 99285